=== PATIENT | male | born 1960 | race African-American/Black ===

== ENCOUNTER 2017-12-05 04:43 | Emergency (ER) | payer OTHER | END 2017-12-05 05:19 | disposition home or self-care (01) | LOC: ER 04:43 | DX: J02.9 Acute pharyngitis, unspecified (principal); R51 Headache; F17.200 Nicotine dependence, unspecified, uncomplicated; I10 Essential (primary) hypertension; Z71.6 Tobacco abuse counseling | CPT/HCPCS: 71046; 99284-25 ==

== ENCOUNTER 2018-11-03 12:07 | Emergency (ER) | payer OTHER ==
[2017-12-05 04:54] VITALS: BP 153/87
[~2018-11-03] VITALS: Ht 180.3 cm; Wt 86.2 kg
[~2018-11-03 12:07] MED LIST: AMOX875T PO; BENZ100C PO; DOXY100T9 PO; IBUP-1060 PO; LIDO20SO PO; PRED50TA PO
[2018-11-03] MEDS ORDERED: ORPH100T PO (12:46)
--- NOTE | 2018-11-03 12:47 | PHYS DOC ---
Past Medical History Past Medical History: Hypertension, Other Additional Past Medical Histor: CHRONIC BACK PAIN Past Surgical History: No Surgical History Additional Past Surgical Histo: BACK SURG Alcohol Use: None Drug Use: None Adult General Chief Complaint Chief Complaint: BACK PAIN OR INJURY HPI HPI Patient is a 58 year old AA male who presents to the ER with complaints of low back pain for the last 4 months after having lumbar surgery for back pain. Pt states that an MRI was done by the surgeon after the procedure and the surgeon states that everything appears normal on the MRI. Pt denies any new injury, fall , saddle anesthesia, loss of bowel/bladder control, urinary frequency, dysuria, or weakness of lower extremities. Currently he rates his pain a 8/10 on the pain scale and states that there are no alleviating or exacerbating factors. Review of Systems Review of Systems Constitutional: Denies fever or chills [] GI: Denies saddle anesthesia : Denies dysuria or hematuria [] Musculoskeletal: See HPI Neurologic: Denies headache, focal weakness or sensory changes [] Allergies Allergies Allergies Coded Allergies Type Severity Reaction Last Updated Verified No Known Drug Allergies 05/07/16 No Physical Exam Physical Exam Constitutional: Well developed, well nourished, no acute distress, non-toxic appearance. [] HENT: Normocephalic, atraumatic, bilateral external ears normal, oropharynx moist, no oral exudates, nose normal. [] Eyes: PERRLA, EOMI, conjunctiva normal, no discharge. [] Neck: Normal range of motion, no tenderness, supple, no stridor. [] Cardiovascular:Heart rate regular rhythm, no murmur [] Lungs & Thorax: Bilateral breath sounds clear to auscultation [] Abdomen: Bowel sounds normal, soft, no tenderness, no masses, no pulsatile masses. [] Skin: Warm, dry, no erythema, no rash. [] Back: No tenderness, no CVA tenderness. [] Extremities: No tenderness, no cyanosis, no clubbing, ROM intact, no edema. [] Neurologic: Alert and oriented X 3, normal motor function, normal sensory function, no focal deficits noted. [] Psychologic: Affect normal, judgement normal, mood normal. [] Current Patient Data Vital Signs Vital Signs Date Time Temp Pulse Resp B/P (MAP) Pulse Ox O2 Delivery O2 Flow Rate FiO2 11/03/18 12:11 98.1 85 16 189/98 (128) 97 Room Air 98.1 EKG EKG [] Radiology/Procedures Radiology/Procedures [] Course & Med Decision Making Course & Med Decision Making Pertinent Labs and Imaging studies reviewed. (See chart for details) Dx: chronic low back pain Prescription written for orphenadrine. Pt instructed to Continue taking hydrocodone and anti-inflammatory as prescribed, STOP TAKING FLEXERIL. Fill the prescription and use as directed. Follow up with Dr. Key, call to schedule an appointment. Return to the ER if your symptoms worsen. Patient verbalized an understanding of home care, medications, follow-up, and return to ED instructions and was in agreement with the plan of care. [] Dragon Disclaimer Dragon Disclaimer This electronic medical record was generated, in whole or in part, using a voice recognition dictation system. Departure Departure Impression: Primary Impression: Low back pain Disposition: HOME, SELF-CARE Condition: STABLE Referrals: UNKNOWN PCP NAME (PCP) МАРИНА KEY MD Patient Instructions: Chronic Back Pain Additional Instructions: Continue taking your hydrocodone and anti-inflammatory, STOP TAKING FLEXERIL. Fill the prescription and use as directed. Follow up with Dr. Key, call to schedule an appointment. Return to the ER if your symptoms worsen. Scripts Orphenadrine Citrate (ORPHENADRINE CITRATE) 100 Mg Tablet.er 100 MG PO BID PRN for MODERATE PAIN for 10 Days, #20 TAB.SR 0 Refills Prov: BECK GONZALEZ [employer] 11/03/18 Problem Qualifiers Primary Impression: Low back pain Chronicity: chronic Back pain laterality: midline Sciatica presence: without sciatica Qualified Codes: M54.5 - Low back pain; G89.29 - Other chronic pain BECK GONZALEZ [employer] Nov 03, 2018 12:47
== END 2018-11-03 12:51 | disposition home or self-care (01) ==
LOC: ER 12:07
DX: M54.5 Low back pain (principal); G89.29 Other chronic pain; I10 Essential (primary) hypertension
CPT/HCPCS: 99283

== ENCOUNTER 2019-03-04 22:28 | Emergency (ER) | payer SELFPAY ==
[~2019-03-04] VITALS: Ht 180.3 cm; Wt 90.7 kg
[~2019-03-04 22:28] MED LIST changes: +ORPH100T PO
[2019-03-04] MEDS ORDERED: KETOROLAC 60 MG/2 ML VIAL. IM ONE (23:15)
[2019-03-04] MEDS ORDERED: ORPHENADRINE CITRATE 60 MG/2 ML VIAL. IM ONE (23:15)
[2019-03-04] MEDS ORDERED: METH-37 PO (23:27)
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
[2019-03-04 23:30] VITALS: BP 164/82
--- NOTE | 2019-03-04 23:32 | RAD ---
CT head without contrast: Reason for examination: Trauma. Axial images were obtained through the brain. No contrast was administered. Exposure: One or more of the following individualized dose reduction techniques were utilized for this examination: 1. Automated exposure control 2. Adjustment of the mA and/or kV according to patient size 3. Use of iterative reconstruction technique. Ventricular systems are symmetric and not dilated. No midline shift is seen. There is no evidence of intracranial hemorrhage, infarct, mass or edema. There are some patchy deep white matter changes in the frontal lobes bilaterally consistent with microvascular ischemic changes. No abnormalities of seen at the orbits. The paranasal sinuses show mucosal disease in the left frontal and a few of the left ethmoid air cells. Mastoid air cells are clear. No acute abnormality seen in the skull. IMPRESSION: No acute intracranial abnormality evident. Mild patchy deep white matter changes consistent with microvascular ischemia in the frontal lobes bilaterally. Electronically signed by: Rosa Cabrera MD (03/04/2019 11:29 PM) [id number]
== END 2019-03-04 23:40 | disposition home or self-care (01) ==
LOC: ER 22:28
DX: S00.83XA Contusion of other part of head, initial encounter (principal); M54.6 Pain in thoracic spine; G89.29 Other chronic pain; I10 Essential (primary) hypertension; V63.5XXA Driver of heavy transport vehicle injured in collision with car, pick-up truck or van in traffic accident, initial encounter; Y93.89 Activity, other specified; Y92.410 Unspecified street and highway as the place of occurrence of the external cause; Y99.8 Other external cause status
CPT/HCPCS: 70450; 96372; 99284; J1885; J2360